=== PATIENT | male | born 1955 | race African-American/Black ===

== ENCOUNTER 2019-01-08 10:55 | Emergency (ER) | payer OTHER, MEDICAID ==
[~2019-01-08] VITALS: Ht 177.8 cm; Wt 83.0 kg
[2019-01-08] MEDS ORDERED: ATOR10TA69 PO (11:02)
[2019-01-08] MEDS ORDERED: KETOROLAC 30MG/ML VIAL IM STA (11:50)
[2019-01-08 12:17] LABS: HEMATOCRIT. 45.7 % (42.0-52.0); HEMOGLOBIN. 15.1 g/dL (14.0-18.0); MEAN CORPUSCULAR HEMOGLOBIN 28.2 pg (28.0-32.0); MEAN CORPUSCULAR VOLUME 85.7 fL (80.0-94.0); MEAN PLATELET VOLUME 7.7 fl (7.4-10.4); PLATELET 252 x1000/uL (130-400); RED BLOOD CELL COUNT 5.33 mill/uL (4.7-6.1); RED CELL DISTRIBUTION WIDTH 13.9 % (11.6-14.6)
[2019-01-08 12:33] LABS: PLATELET ESTIMATE NORMAL
[2019-01-08 14:33] VITALS: BP 148/86
== END 2019-01-08 14:34 | disposition home or self-care (01) ==
LOC: ER 10:55
DX: M25.512 Pain in left shoulder (principal); M43.6 Torticollis; I10 Essential (primary) hypertension
CPT/HCPCS: 36415; 71045; 84484; 85025; 93005; 96372; 99284; J1885

== ENCOUNTER 2021-05-16 12:40 | Emergency (ER) | payer OTHER, MEDICAID ==
[~2021-05-16] VITALS: Ht 180.3 cm; Wt 90.0 kg
[~2021-05-16 12:40] MED LIST: ATOR10TA69 PO
[2021-05-16] MEDS ORDERED: ACETAMINOPHEN 325MG TABLET PO STA (12:57)
[2021-05-16] MEDS ORDERED: ASPIRIN 81MG TABLET PO ONE (13:00)
[2021-05-16 15:02] LABS: BASOPHILS % 0.3 % (0.0-2.0); EOSINOPHILS % 0.5 % (0.0-5.0); HEMATOCRIT. 46.2 % (42.0-52.0); HEMOGLOBIN. 15.2 g/dL (14.0-18.0); LYMPHOCYTES % 13.9 % (20.0-50.0); MEAN CORPUSCULAR HEMOGLOBIN 27.7 pg (28.0-32.0); MEAN CORPUSCULAR VOLUME 84.4 fL (80.0-94.0); MEAN PLATELET VOLUME 7.8 fl (7.4-10.4); MONOCYTES % 7.3 % (2.0-8.0); PLATELET 273 x1000/uL (130-400); RED BLOOD CELL COUNT 5.48 mill/uL (4.7-6.1)
[2021-05-16 15:06] LABS: CHLORIDE 110 mEq/L (98-107)
[2021-05-16 17:13] VITALS: BP 160/83
== END 2021-05-16 17:15 | disposition home or self-care (01) ==
LOC: ER 12:52 → CANBEDREQ 18:51
DX: R07.89 Other chest pain (principal); I10 Essential (primary) hypertension; E78.5 Hyperlipidemia, unspecified; E11.9 Type 2 diabetes mellitus without complications
CPT/HCPCS: 36415; 71045; 80053; 83880; 84484; 85025; 93005; 99285

== ENCOUNTER 2023-01-06 21:09 | Emergency (ER) | payer OTHER, MEDICAID ==
[~2023-01-06] VITALS: Ht 182.9 cm; Wt 95.0 kg
[2023-01-06 23:12] LABS: EOSINOPHILS % 3.9 % (0.0-5.0); HEMATOCRIT. 44.1 % (42.0-52.0); HEMOGLOBIN. 14.5 g/dL (14.0-18.0); LYMPHOCYTES % 22.1 % (20.0-50.0); MEAN CORPUSCULAR HEMOGLOBIN 28.5 pg (28.0-32.0); MEAN CORPUSCULAR VOLUME 86.6 fL (80.0-94.0); MEAN PLATELET VOLUME 7.5 fl (7.4-10.4); PLATELET 246 x1000/uL (130-400); RED BLOOD CELL COUNT 5.09 mill/uL (4.7-6.1); RED CELL DISTRIBUTION WIDTH 14.7 % (11.6-14.6)
[2023-01-06 23:26] LABS: CHLORIDE 106 mEq/L (98-107)
[2023-01-07] MEDS ORDERED: MECLIZINE 25MG TABLET PO ONE (02:30)
[2023-01-07] MEDS ORDERED: MECL-217 MT (02:45)
[2023-01-07 03:15] VITALS: BP 132/77
== END 2023-01-07 03:22 | disposition home or self-care (01) ==
LOC: ER 21:09
DX: R42 Dizziness and giddiness (principal); I11.9 Hypertensive heart disease without heart failure; M19.90 Unspecified osteoarthritis, unspecified site
CPT/HCPCS: 36415; 70450; 71045; 80053; 84484; 85025; 99284; J8597

== ENCOUNTER → 2024-09-09 | Outpatient (CLI) | payer MEDICARE, MEDICAID ==
[~2024-09-09] MED LIST changes: +MECL-217 MT
== END | disposition home or self-care (01) ==
LOC: RAD 15:06
DX: M51.369 Other intervertebral disc degeneration, lumbar region without mention of lumbar back pain or lower extremity pain (principal); M47.816 Spondylosis without myelopathy or radiculopathy, lumbar region; M19.012 Primary osteoarthritis, left shoulder; M48.07 Spinal stenosis, lumbosacral region; Z96.643 Presence of artificial hip joint, bilateral
CPT/HCPCS: 72110; 73030; 73522